=== PATIENT | female | born 1980 | race Caucasian/White ===

== ENCOUNTER → 2022-09-04 | Outpatient (CLI) | payer OTHER, SELFPAY ==
[2022-09-04 17:43] LABS: Absolute Lymphocyte Count 1.59 X10^3/uL (0.83-4.51); Absolute Neutrophil Count 4.9 X10^3/uL (2.0-7.7); Basophil# 0.04 X10^3/uL; Basophil% 0.6 % (0-1); Eosinophil# 0.04 X10^3/uL; Eosinophils% 0.6 % (0-5); Hematocrit 40.4 % (37-47); Hemoglobin 14.4 g/dL (12.0-15.0); Lymphocyte # 1.59 X10^3/ul (0.83-4.51); Lymphocyte % 22.6 % (19-41); Mean Corp Hgb Conc 35.6 g/dL (32-36); Mean Corpuscular Volume 89.8 fL (81-99); Mean Platelet Vol. 11.3 fl (6.2-12.0); Monocyte# 0.44 X10^3/uL; Monocyte% 6.3 % (0-10); NRBC Flagged by Analyzer 0 % (0-5); Neutrophil # 4.89 X10^3/uL (2.7-7.7); Neutrophil % 69.6 % (47-70); Platelet Count 295 K/mm3 (150-450); RBC Distribution Width CV 12.7 % (11.6-14.6); RBC Distribution Width SD 41.9 fl (35.1-43.9)
[2022-09-04 17:47] LABS: ALB/GLOB Ratio 1.2 RATIO (0.9-2.4); AST(SGOT) 17 U/L (15-37); Alanine Aminotransfer ALT/SGPT 20 U/L (13-56); Albumin, Serum 3.9 g/dL (3.2-5.0); Alkaline Phosphatase 66 U/L (45-117); Anion Gap 8 (5-15); BUN 11 mg/dL (7-18); BUN/Creat Ratio 15.9 RATIO (10-20); CRP < 2.90 mg/L (0.0-3.0); Calcium,Total 8.6 mg/dL (8.5-10.1); Chloride 102 mmol/L (98-107); Creatinine, Serum 0.69 mg/dL (0.55-1.02); EST Glomerular Filtration Rate 98 mL/min (>60); Est Glom Filt Rate - Afr Amer 118 mL/min (>60); Globulin 3.3 g/dL (2.2-4.2); Glucose 76 mg/dL (74-106); Potassium 3.4 mmol/L (3.5-5.1); Protein, Total 7.2 g/dL (6.4-8.2); Rheumatoid Factor < 10.0 IU/mL (<15); Sodium Level 135 mmol/L (136-145)
[2022-09-04 17:48] LABS: Erythrocyte Sedimentation Rate 2 mm/hr (0-30)
[2022-09-07 08:56] LABS: Hepatitis B Surface Antibody Non-Reactive; Hepatitis B Surface Antigen Non-Reactive (Nonreactive); Hepatitis C Antibody Non-Reactive (Nonreactive)
[2022-09-08 17:56] LABS: CCP IgG Antibodies 3 units (0-19)
[2022-09-08 18:33] LABS: ANTINUCLEAR ANTIBODIES DIRECT Negative (Negative)
== END | disposition home or self-care (01) ==
LOC: MTLAB 14:38
PROVIDERS: PCP Preventive Medicine Occupational Medicine; Referring Provider Internal Medicine Rheumatology; Visit Provider Internal Medicine Rheumatology
DX: M06.4 Inflammatory polyarthropathy (principal); M79.7 Fibromyalgia; R51.9 Headache, unspecified; K21.9 Gastro-esophageal reflux disease without esophagitis; J30.2 Other seasonal allergic rhinitis
CPT/HCPCS: 36415; 80053; 85025; 85652; 86038; 86140; 86200; 86431; 86706; 86803; 87340

== ENCOUNTER → 2022-12-01 | Outpatient (CLI) | payer OTHER, SELFPAY ==
[2022-12-01 17:59] LABS: Absolute Lymphocyte Count 1.27 X10^3/uL (0.83-4.51); Absolute Neutrophil Count 8.1 X10^3/uL (2.0-7.7); Basophil# 0.04 X10^3/uL; Basophil% 0.4 % (0-1); Eosinophil# 0.03 X10^3/uL; Eosinophils% 0.3 % (0-5); Hematocrit 40.3 % (37-47); Hemoglobin 13.6 g/dL (12.0-15.0); Lymphocyte # 1.27 X10^3/ul (0.83-4.51); Lymphocyte % 12.5 % (19-41); Mean Corp Hgb Conc 33.7 g/dL (32-36); Mean Corpuscular Hgb 31.3 pg (27.0-32.0); Mean Corpuscular Volume 92.9 fL (81-99); Mean Platelet Vol. 10.3 fl (6.2-12.0); Monocyte# 0.73 X10^3/uL; Monocyte% 7.2 % (0-10); NRBC Flagged by Analyzer 0.2 % (0-5); Neutrophil # 8.09 X10^3/uL (2.7-7.7); Neutrophil % 79.3 % (47-70); Platelet Count 277 K/mm3 (150-450); RBC Distribution Width CV 12.9 % (11.6-14.6); RBC Distribution Width SD 44.1 fl (35.1-43.9); Red Blood Count 4.34 M/mm3 (4.2-5.4); White Blood Count 10.2 K/mm3 (4.4-11.0)
[2022-12-01 18:59] LABS: ALB/GLOB Ratio 1.4 RATIO (0.9-2.4); AST(SGOT) 11 U/L (15-37); Alanine Aminotransfer ALT/SGPT 20 U/L (13-56); Albumin, Serum 3.9 g/dL (3.2-5.0); Alkaline Phosphatase 50 U/L (45-117); Anion Gap 6 (5-15); BUN 9 mg/dL (7-18); BUN/Creat Ratio 10.1 RATIO (10-20); Calcium,Total 8.6 mg/dL (8.5-10.1); Chloride 102 mmol/L (98-107); Creatinine, Serum 0.89 mg/dL (0.55-1.02); EST Glomerular Filtration Rate 73 mL/min (>60); Est Glom Filt Rate - Afr Amer 88 mL/min (>60); Globulin 2.8 g/dL (2.2-4.2); Glucose 109 mg/dL (74-106); Potassium 4.5 mmol/L (3.5-5.1); Protein, Total 6.7 g/dL (6.4-8.2); Sodium Level 137 mmol/L (136-145)
== END | disposition home or self-care (01) ==
LOC: MTLAB 16:40
PROVIDERS: PCP Preventive Medicine Occupational Medicine; Referring Provider Internal Medicine Rheumatology; Visit Provider Internal Medicine Rheumatology
DX: M06.4 Inflammatory polyarthropathy (principal); M79.7 Fibromyalgia; R51.9 Headache, unspecified; K21.9 Gastro-esophageal reflux disease without esophagitis; J30.2 Other seasonal allergic rhinitis
CPT/HCPCS: 36415; 80053; 85025

== ENCOUNTER → 2023-01-27 | Outpatient (CLI) | payer OTHER, SELFPAY ==
[2023-01-27 17:54] LABS: Absolute Lymphocyte Count 1.67 X10^3/uL (0.83-4.51); Basophil# 0.04 X10^3/uL; Basophil% 0.8 % (0-1); Eosinophil# 0.04 X10^3/uL; Eosinophils% 0.8 % (0-5); Hematocrit 37.9 % (37-47); Hemoglobin 13.1 g/dL (12.0-15.0); Lymphocyte # 1.67 X10^3/ul (0.83-4.51); Lymphocyte % 31.7 % (19-41); Mean Corp Hgb Conc 34.6 g/dL (32-36); Mean Corpuscular Volume 92.7 fL (81-99); Mean Platelet Vol. 11.4 fl (6.2-12.0); Monocyte% 9.5 % (0-10); NRBC Flagged by Analyzer 0 % (0-5); Neutrophil # 3.02 X10^3/uL (2.7-7.7); Neutrophil % 57.2 % (47-70); Platelet Count 242 K/mm3 (150-450); RBC Distribution Width CV 12.9 % (11.6-14.6); RBC Distribution Width SD 43.8 fl (35.1-43.9); Red Blood Count 4.09 M/mm3 (4.2-5.4); White Blood Count 5.3 K/mm3 (4.4-11.0)
[2023-01-27 18:40] LABS: ALB/GLOB Ratio 1.3 RATIO (0.9-2.4); AST(SGOT) 22 U/L (15-37); Alanine Aminotransfer ALT/SGPT 30 U/L (13-56); Albumin, Serum 3.9 g/dL (3.2-5.0); Alkaline Phosphatase 62 U/L (45-117); Anion Gap 8 (5-15); BUN 9 mg/dL (7-18); Calcium,Total 8.6 mg/dL (8.5-10.1); Chloride 103 mmol/L (98-107); Creatinine, Serum 0.75 mg/dL (0.55-1.02); EST Glomerular Filtration Rate 89 mL/min (>60); Est Glom Filt Rate - Afr Amer 108 mL/min (>60); Globulin 2.9 g/dL (2.2-4.2); Glucose 98 mg/dL (74-106); Potassium 3.6 mmol/L (3.5-5.1); Protein, Total 6.8 g/dL (6.4-8.2); Sodium Level 137 mmol/L (136-145)
== END | disposition home or self-care (01) ==
PROVIDERS: PCP Preventive Medicine Occupational Medicine; Referring Provider Internal Medicine Rheumatology; Visit Provider Internal Medicine Rheumatology
DX: M06.4 Inflammatory polyarthropathy (principal); Z79.899 Other long term (current) drug therapy
CPT/HCPCS: 36415; 80053; 85025

== ENCOUNTER → 2023-04-16 | Outpatient (CLI) | payer OTHER, SELFPAY ==
[2023-04-16 18:04] LABS: Absolute Neutrophil Count 8.1 X10^3/uL (2.0-7.7); Basophil# 0.03 X10^3/uL; Basophil% 0.3 % (0-1); Hematocrit 41.6 % (37-47); Hemoglobin 14.1 g/dL (12.0-15.0); Lymphocyte % 9.6 % (19-41); Mean Corp Hgb Conc 33.9 g/dL (32-36); Mean Corpuscular Volume 94.3 fL (81-99); Mean Platelet Vol. 10.4 fl (6.2-12.0); Monocyte# 0.34 X10^3/uL; Monocyte% 3.6 % (0-10); NRBC Flagged by Analyzer 0 % (0-5); Neutrophil # 8.05 X10^3/uL (2.7-7.7); Neutrophil % 86.3 % (47-70); Platelet Count 317 K/mm3 (150-450); RBC Distribution Width SD 44.7 fl (35.1-43.9); Red Blood Count 4.41 M/mm3 (4.2-5.4); White Blood Count 9.3 K/mm3 (4.4-11.0)
[2023-04-16 18:35] LABS: ALB/GLOB Ratio 1.1 RATIO (0.9-2.4); AST(SGOT) 25 U/L (15-37); Alanine Aminotransfer ALT/SGPT 20 U/L (13-56); Albumin, Serum 3.9 g/dL (3.2-5.0); Alkaline Phosphatase 65 U/L (45-117); Anion Gap 6 (5-15); BUN 15 mg/dL (7-18); BUN/Creat Ratio 20.9 RATIO (10-20); Calcium,Total 9.2 mg/dL (8.5-10.1); Chloride 105 mmol/L (98-107); Creatinine, Serum 0.72 mg/dL (0.55-1.02); EST Glomerular Filtration Rate 94 mL/min (>60); Est Glom Filt Rate - Afr Amer 113 mL/min (>60); Globulin 3.4 g/dL (2.2-4.2); Glucose 96 mg/dL (74-106); Protein, Total 7.3 g/dL (6.4-8.2); Sodium Level 136 mmol/L (136-145)
== END | disposition home or self-care (01) ==
LOC: MTLAB 16:31
PROVIDERS: PCP Preventive Medicine Occupational Medicine; Referring Provider Internal Medicine Rheumatology; Visit Provider Internal Medicine Rheumatology
DX: M06.4 Inflammatory polyarthropathy (principal); Z79.899 Other long term (current) drug therapy
CPT/HCPCS: 36415; 80053; 85025

== ENCOUNTER → 2023-11-26 | Outpatient (CLI) | payer OTHER, SELFPAY ==
--- OUTSIDE RECORDS SUMMARY | 2023-11-26 16:52 | XMS RPT_ITS | CCD ---
Author Name Unknown Address [address] [place] [address] Organization [facility] Care Team Providers Care Public Relations Senior Associate Name Role Phone Karolyn Zee Primary Care Provider [phone] KAROLYN ZEE DO Primary Care Physician Marge LEE, Jeanie Unavailable Unavailable LEVI PAEZ, DR LASSITER Attending KAROLYN Broussard DO Primary Care Unavailable LEVI PAEZ, DR LASSITER Attending KAROLYN Broussard DO Primary Care Unavailable Allergies Allergy Classification Reported Allergen(s) Allergy Type Date of Onset Reaction(s) Facility (7 sources) Gentamicin; Translations: [gentamicin] Drug Allergy 0 Swelling, Rash, Facial swelling (finding) [place], [place] (6 sources) Sulfonamides (Antibiotic) Propensity to adverse reactions to drug 0 Swelling [place], [place] (1 source) Sulfonamides (Antibiotic); Translations: [sulfa drugs] Drug allergy Rash [facility] Work Phone: Medications Current Medications Medication Drug Class(es) Dates Sig (Normalized) Sig (Original) acetaminophen 500 mg oral tablet (6 sources) Start: 08-29-2020 acetaminophen 500 mg oral tablet Dose : 1,000 mg = 2 tab(s), Oral, TID, PRN pain or fever, 0 Refill(s) Start Date: 08/29/20 Status: Ordered Completed/Discontinued Medications Medication Drug Class(es) Dates Sig (Normalized) Sig (Original) celecoxib 100 mg oral capsule (2 sources) Nonsteroidal Anti-inflammatory Drug Start: 04-10-2020 End: 05-20-2020 take 1 capsule by mouth twice daily celecoxib (CELEBREX) 100 MG capsule TAKE 1 CAPSULE BY MOUTH TWICE A DAY 60 capsule 0 04/10/2020 05/20/2020 Discontinued (LIST CLEANUP) Problems Problem Classification Problem Date Documented Date Episodic/Chronic Anxiety disorders (1 source) 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 Disorders of teeth and jaw (1 source) Temporomandibular kabph-kfiv-cdmqyesjopi syndrome 07-26-2020 Episodic Esophageal disorders (1 source) Gastroesophageal reflux disease without esophagitis 07-26-2020 Chronic Malaise and fatigue (1 source) Fatigue 04-10-2022 Episodic Other connective tissue disease (1 source) 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 Other connective tissue disease (1 source) Spasm 02-14-2021 Episodic Other non-traumatic joint disorders (1 source) Multiple joint pain 04-10-2022 Episodic Other upper respiratory disease (1 source) Seasonal allergy 02-16-2020 Chronic Residual codes; unclassified (1 source) Insomnia 02-10-2021 Episodic Spondylosis; intervertebral disc disorders; other back problems (10 sources) Radiculopathy due to lumbar intervertebral disc disorder; Translations: [Lumbar spondylosis] Onset: 03-24-2020 03-24-2020 Chronic Unclassified (1 source) Mitotane (substance) 02-16-2020 Results Test Name Value Interpretation Reference Range Facil ity Vital Signs Date Time Vital Sign Value Performing Clinician Faci lity 10-14-2020 09:20-0500 Body Temperature 97.81 [degF] Reuben [facility], [place] 10-14-2020 09:20-0500 BP Diastolic 81 mm[Hg] [facility] , [place] 10-14-2020 09:20-0500 BP Systolic 125 mm[Hg] [facility] [place] 10-14-2020 09:20-0500 Pulse (Heart Rate) 64 /min [facility], [place] 10-14-2020 09:20-0500 Pulse Oximetry 100 % [facility] [place] 10-14-2020 09:20-0500 Respiratory Rate 16 /min [facility] [place] 09-16-2020 09:21-0500 BP Diastolic 89 mm[Hg] [facility] [place] 09-16-2020 09:21-0500 BP Systolic 115 mm[Hg] [facility] [place] 09-16-2020 09:21-0500 Pulse (Heart Rate) 80 /min [facility] [place] 09-16-2020 09:21-0500 Pulse Oximetry 100 % [facility] [place] [facility] [place] 09-16-2020 09:21-0500 Respiratory Rate 16 /min [facility] [place] 09-16-2020 08:28-0500 Body Temperature 98.01 [degF] [facility] [place] 09-02-2020 10:15-0400 Body Temperature 98.01 [degF] [facility] [place] 09-02-2020 10:15-0400 BP Diastolic 89 mm[Hg] [facility] [place] 09-02-2020 10:15-0400 BP Systolic 119 mm[Hg] [facility] [place] 09-02-2020 10:15-0400 Pulse (Heart Rate) 62 /min [facility] [place] 09-02-2020 10:15-0400 Pulse Oximetry 99 % [facility] [place] 09-02-2020 10:15-0400 Respiratory Rate 16 /min [facility] [place] 08-05-2020 10:43-0400 BP Diastolic 82 mm[Hg] [facility] [place] 08-05-2020 10:43-0400 BP Systolic 133 mm[Hg] [facility]uben [facility] [place] 08-05-2020 10:43-0400 Pulse (Heart Rate) 62 /min [facility] [place] 08-05-2020 10:43-0400 Pulse Oximetry 100 % [facility] [place] 08-05-2020 10:43-0400 Respiratory Rate 16 /min [facility] [place] 08-05-2020 10:10-0400 BMI (Body Mass Index) 21.8 kg/m2 Reuben [facility] [place] 08-05-2020 10:10-0400 Body weight 59.42 kg Re[facility] [place] 08-05-2020 10:10-0400 Height 165.1 cm [facility] [place] 08-05-2020 10:07-0400 Body Temperature 98.91 [degF] [facility] [place] 05-20-2020 10:14-0400 BP Diastolic 91 mm[Hg] [facility] [place] [facility] [place] 05-20-2020 10:14-0400 BP Systolic 137 mm[Hg] [facility] [place] 05-20-2020 10:14-0400 Pulse (Heart Rate) 62 /min [facility] [place] 05-20-2020 10:14-0400 Pulse Oximetry 100 % [facility] [place] 05-20-2020 10:14-0400 Respiratory Rate 16 /min [facility] 05-20-2020 09:37-0400 Body Temperature 97.5 [degF] [facility] 05-20-2020 09:37-0400 BMI (Body Mass Index) 21.63 kg/m2 Reuben Michaels [facility] [place], [place] 05-20-2020 09:37-0400 Body weight 58.97 kg Reuben [facility] [place] [facility] [place] 05-20-2020 09:37-0400 Height 165.1 cm Re[facility] [place] [facility] [place] 03-25-2020 08:36-0400 Body Temperature 98.1 [degF] [facility] [place] 03-25-2020 08:36-0400 BP Diastolic 81 mm[Hg] [facility] [place] [facility] [place] 03-25-2020 08:36-0400 BP Systolic 112 mm[Hg] Re[facility] [place] 03-25-2020 08:36-0400 Pulse (Heart Rate) 60 /min [facility] [place] 03-25-2020 08:36-0400 Pulse Oximetry 100 % Re[facility] [place] 03-25-2020 08:36-0400 Respiratory Rate 16 /min [place] 03-25-2020 06:57-0400 BMI (Body Mass Index) 21.63 kg/m2 Reuben Michaels [place], [place] 03-25-2020 06:57-0400 Body weight 58.97 kg Reuben Varghese [place], [place] 03-25-2020 06:57-0400 Height 165.1 cm Reuben Varghese [place] Encounters Encounter Date Encounter Type Care Provider Facility Start: 08-31-2023 End: 09-01-[address] SRAVANI SIMS MD Facility:B Start: 06-29-2023 End: 06-30-[address] SRAVANI SIMS MD Facility:[facility] Start: 04-14-2022 End: 04-14-2022 Patient encounter procedure KAROLYN SOLORIOLondon [facility] Start: 10-14-2020 End: 10-14-2020 Subsequent hospital visit by physician Reuben Varghese Work Phone: [facility] General Surgery Procedures Date Procedure Procedure Detail Performing Clinician Anes nose & accessor y sinuses radical surgery KAROLYN ZEE DO Arthroscopy of knee KAROLYN MEDLEY DO Plan of Treatment Date Care Activity Detail Author Start: 10-18-2020 End: 10-18-2020 Office Visit 10/18/2020 Office Visit Pain Management Reuben Varghese MD [address] [place], [place] [id number] Pain Medicine Start: 09-03-2020 End: 09-03-2020 Office Visit 09/03/2020 Office Visit Pain Management Reuben Varghese MD [address] [place], [place] [id number] Pain Medicine Start: 07-09-2020 Influenza vaccination [place], [place] Start: 2018 Lipid panel Lipid screen [place], [place] Start: 1999 Screening for malign ant neoplasm of cervix Cervical cancer screen [place], [place] Start: 1997 DTaP/Tdap/Td vaccine (1 - Tdap) DTaP/Tdap/Td vaccine (1 - Tdap) [place], [place] Start: 1993 [facility] [place] [place] Payers Date Payer Category Payer Unknown [id number] 2019 Unknown [employer] xxxxxxxxxxxxx 2019-Present [phone] [address] [place] [phone] xxxxxxxxxxxxx [id number] 2019 Unknown [employer] [id number] 2019-Present [phone] [place] [id number] 2019 Unknown [employer] [id number] 2019-Present [phone] [place] [phone] [id number] 1980 Unknown [id number] 1980 Unknown [id number] Social History Date Type Detail Facility Start: 02-16-2020 End: 03-25-2020 Tobacco smoking status NHIS Never smoker [place], [place] Start: 03-25-2020 End: 09-02-2020 Alcohol intake Current drinker of alcohol (finding) [place], [place] Start: 01-04-2020 Alcohol Comment rare use only [place], [place] Sex Assigned At Not on file [place] Start: 05-20-2020 End: 09-02-2020 Tobacco use and exposure Never used BeetailerTANI Exposure to SARS-CoV -2 (event) Not sure BeetailerTANI Sex Assigned At Female [facility] Evaluation + Plan note Radiology Note Date & Type Note Facility Evaluation + Plan note Future Appointments Appointment Date:10/05/2022 09:00:00 AM Scheduled Provider:KAROLYN ZEE DO Location:[facility] Appointment Type: OV Diagnostic Tests PendingAntinuclear Antibody Screen, Serum 04/14/22Rheumatoid Factor 04/14/22 Future Scheduled TestsMA Mammo Screening Bilateral w/ Candido 04/10/22 [facility] Hospital course Narrative Note Date & Type Note Facility Hospital course Narrative No data available for this section [facility] Hospital Discharge instructions Note Date & Type Note Facility Hospital Discharge instructions No data available for this section [facility] Progress note Note Date & Type Note Facility Progress note No data available for this section [facility] Summary Purpose Family History No Family History Records FoundNo Family History Records FoundNo Family History Records Found Advance Directives No Advanced Directives Records FoundDocuments on File Type Date Recorded Patient Brim Flexer Expl anation Advance Directives and Living Will Power of Packaging Mechanic Latest Code Status on File Code Status Date Activated Date Inactivated Comments Full Code 03/25/2020 6:56 AM Latest Code Status on File Code Status Date Activated Date Inactivated Comments Full Code 05/20/2020 9:30 AM Full Code 03/25/2020 6:56 AM 03/25/2020 10:48 AM Documents on File Type Date Recorded Patient Brim Flexer Expl anation ACP-Advance Directive ACP-Power of Packaging Mechanic Latest Code Status on File Code Status Date Activated Date Inactivated Comments Full Code 08/05/2020 10:03 AM Full Code 05/20/2020 9:30 AM 05/20/2020 12:35 PM Latest Code Status on File Code Status Date Activated Date Inactivated Comments Full Code 09/16/2020 8:31 AM Full Code 09/02/2020 8:41 AM 09/02/2020 12:33 PM Full Code 08/05/2020 10:03 AM 08/05/2020 1:00 PM Latest Code Status on File Code Status Date Activated Date Inactivated Comments Full Code 10/14/2020 7:54 AM Full Code 09/16/2020 8:31 AM 09/16/2020 12:13 PM Latest Code Status on File Code Status Date Activated Date Inactivated Comments Full Code 09/02/2020 8:41 AM Discharge Instructions * Instructions* Reuben Varghese MD - 03/25/2020 - Resume normal activity as tolerated - Resume normal diet as tolerated - If injection site is sore, can ice for pain relief - No tubs, baths, pools for 24 hours (showers are okay). - If you take a blood thinner, resume taking this per Dr Varghese's instructions (usually resume 24 hrs after your procedure) - Call Dr Varghese's office (or go to ER after hours or on weekends) if having significantly worsened back or leg pain, significant leg weakness, loss of bowel/bladder control, inability to urinate, fever, or severe positional headache (headache that is significant while upright, but immediately improved with lying flat) - Dr Varghese's office will call you the next business day to schedule follow-up appointment documented in this encounter* Instructions* Reuben Varghese MD - 05/20/2020 - Resume normal activity as tolerated - Resume normal diet as tolerated - If injection site is sore, can ice for pain relief - No tubs, baths, pools for 24 hours (showers are okay). - If you take a blood thinner, resume taking this per Dr Varghese's instructions (usually resume 24 hrs after your procedure) - Call Dr Varghese's office (or go to ER after hours or on weekends) if having significantly worsened back or leg pain, significant leg weakness, loss of bowel/bladder control, inability to urinate, fever, or severe positional headache (headache that is significant while upright, but immediately improved with lying flat) - Dr Varghese's office will call you this week to schedule follow-up appointment documented in this encounter* Instructions* Reuben Varghese MD - 08/05/2020 - Resume normal activity as tolerated.... and pay close attention to your usual low back pain over the next few hours (and fill out pain diary provided to you today) - Resume normal diet as tolerated - If injection site is sore, can ice for pain relief - No tubs, baths, pools for 24 hours (showers are okay). - If you take a blood thinner, resume taking this per Dr Varghese's instructions (usually resume 24 hrs after your procedure) - Call Dr Varghese's office (or go to ER after hours or on weekends) if having significantly worsened back or leg pain, significant leg weakness, loss of bowel/bladder control, inability to urinate, fever, or severe positional headache (headache that is significant while upright, but immediately improved with lying flat) - Dr Varghese's office will call you this week to schedule follow-up appointment, if you do not already have one documented in this encounter* Instructions* Reuben Varghese MD - 09/16/2020 - Resume normal activity as tolerated... and pay close attention to your usual low back pain over the next few hours (and fill out pain diary provided to you today) - Resume normal diet as tolerated - If injection site is sore, can ice for pain relief - No tubs, baths, pools for 24 hours (showers are okay). - If you take a blood thinner, resume taking this per Dr Varghese's instructions (usually resume 24 hrs after your procedure) - Call Dr Varghese's office (or go to ER after hours or on weekends) if having significantly worsened back or leg pain, significant leg weakness, loss of bowel/bladder control, inability to urinate, fever, or severe positional headache (headache that is significant while upright, but immediately improved with lying flat) - Dr Varghese's office will call you this week to gauge how much relief you obtained, and schedule the next step documented in this encounter* Instructions* Reuben Varghese MD - 10/14/2020 - Resume normal activity as tolerated - Resume normal diet as tolerated - If injection site is sore, can ice for pain relief - No tubs, baths, pools for 24 hours (showers are okay). - If you take a blood thinner, resume taking this per Dr Varghese's instructions (usually resume 24 hrs after your procedure) - Call Dr Varghese's office (or go to ER after hours or on weekends) if having significantly worsened back or leg pain, significant leg weakness, loss of bowel/bladder control, inability to urinate, fever, or severe positional headache (headache that is significant while upright, but immediately improved with lying flat) - Dr Varghese's office will call you this week to schedule follow-up appointment, if you do not already have one documented in this encounter* Instructions* Reuben Varghese MD - 09/02/2020 - Resume normal activity as tolerated... and pay close attention to your usual low back pain over the next few hours (and fill out pain diary provided to you today) - Resume normal diet as tolerated - If injection site is sore, can ice for pain relief - No tubs, baths, pools for 24 hours (showers are okay). - If you take a blood thinner, resume taking this per Dr Varghese's instructions (usually resume 24 hrs after your procedure) - Call Dr Varghese's office (or go to ER after hours or on weekends) if having significantly worsened back or leg pain, significant leg weakness, loss of bowel/bladder control, inability to urinate, fever, or severe positional headache (headache that is significant while upright, but immediately improved with lying flat) - Dr Varghese's office will call you this week to schedule follow-up appointment, if you do not already have one documented in this encounter History of Present Illness * Jessica Diego RN - 09/16/2020 9:23 AM EST Baindaid to right lower back dry and intact documented in this encounter* Jessica Benton RN - 09/02/2020 10:24 AM EDT Instructions given with verbalized understanding Pt had no sedation and chose to walk out Will do follow up to decide plan of care documented in this encounter Procedure Findings Note Operative Note Patient: Sushant Stapleton Date of : 1980 PROCEDURE: LEFT L5 Transforaminal Epidural Steroid Injection under Fluoroscopic Guidance PERFORMED BY: Reuben Varghese MD PRE-OPERATIVE DIAGNOSIS: Lumbar Radiculopathy in a LEFT L5 distribution POST-OPERATIVE DIAGNOSIS: Same ANESTHESIA: Local DESCRIPTION: A history and physical examination were performed and informed consent obtained. A ?time out? with 2 active identifiers of the patient, the procedure, and the site was performed. A sterile prep with Chloraprep and drape of the lumbar area was then performed. Using an ipsilateral oblique fluoroscopic view, the LEFT L5-S1 neuroforamen was brought into view. Approximately 4 cc of 1% lidocaine was then used to provide local anesthesia in the overlying skin and subcutaneous tissues. Next, using a subpedicular approach, a 5 inch, 22g Quinke needle was placed under fluoroscopy and advanced toward the appropriate neuroforamen as identified in both the AP and oblique views (more content not included)... Note Operative Note Patient: Sushant Stapleton Date of : 1980 Date of Procedure: 05/20/20 PROCEDURE: Lumbar Epidural Steroid Injection under Fluoroscopic Guidance PERFORMED BY: Reuben Varghese MD PRE-OPERATIVE DIAGNOSIS: Lumbar Radiculopathy POST-OPERATIVE DIAGNOSIS: Same ANESTHESIA: Local DESCRIPTION: A history and physical examination were performed and informed consent obtained. A ?time out? with 2 active identifiers of the patient, the procedure, and the site was performed. A sterile prep with Chloraprep and drape of the lumbar area was then performed. Using an AP fluoroscopic view, the L5-S1 interlaminar space was brought into view. Approximately 4 cc of 1% lidocaine was then used to provide local anesthesia in the overlying skin and subcutaneous tissues. Next, using a left paramedian, loss of resistance to saline approach, a 3.5 inch, 20g Touhy needle was placed under fluoroscopy and advanced toward the epidural space as identified in both the AP and lateral views. The e (more content not included)... Note Operative Note Patient: Sushant Stapleton Date of : 1980 Date of Procedure: 08/05/20 PROCEDURE: LEFT L3, L4, and L5 Medial Branch Nerve Blocks under Fluoroscopic Guidance PERFORMED BY: Reuben Varghese MD PRE-OPERATIVE DIAGNOSIS: Lumbar Spondylosis without Radiculopathy or Myelopathy POST-OPERATIVE DIAGNOSIS: Same ANESTHESIA: Local DESCRIPTION: History and physical examination were performed and informed consent obtained. A ?time out? with 2 active identifiers of the patient, the procedure, and the site was performed. The patient was positioned prone on the fluoroscopy table. A sterile prep and drape of the area was performed and approximately 8 cc total of 1% lidocaine was used to provide local anesthesia. Fluoroscopy was used to identify the LEFT facet joints between L4-L5 and L5-S1. Using the single needle technique, a 22-gauge, 3.5 inch spinal needle was placed under fluoroscopic guidance in the oblique view, and directed to the junction of the superior articular proce (more content not included)... Note Operative Note Patient: Sushant Stapleton Date of : 1980 Date of Procedure: 09/02/20 PROCEDURE: Bilateral L3, L4, and L5 Medial Branch Nerve Blocks under Fluoroscopic Guidance PERFORMED BY: Reuben Varghese MD PRE-OPERATIVE DIAGNOSIS: Lumbar Spondylosis without Radiculopathy or Myelopathy POST-OPERATIVE DIAGNOSIS: Same ANESTHESIA: Local DESCRIPTION: History and physical examination were performed and informed consent obtained. A ?time out? with 2 active identifiers of the patient, the procedure, and the site was performed. The patient was positioned prone on the fluoroscopy table. A sterile prep and drape of the area was performed and approximately 12 cc total of 1% lidocaine was used to provide local anesthesia. Fluoroscopy was used to identify the RIGHT facet joints between L4-L5 and L5-S1. Using the single needle technique, a 22-gauge, 3.5 inch spinal needle was placed under fluoroscopic guidance in the oblique view, and directed to the junction of the superior articul (more content not included)... Note Operative Note Patient: Sushant Stapleton Date of : 1980 Date of Procedure: 09/16/20 PROCEDURE: RIGHT L3, L4, and L5 Medial Branch Nerve Blocks under Fluoroscopic Guidance PERFORMED BY: Reuben Varghese MD PRE-OPERATIVE DIAGNOSIS: Lumbar Spondylosis without Radiculopathy or Myelopathy POST-OPERATIVE DIAGNOSIS: Same ANESTHESIA: Local DESCRIPTION: History and physical examination were performed and informed consent obtained. A ?time out? with 2 active identifiers of the patient, the procedure, and the site was performed. The patient was positioned prone on the fluoroscopy table. A sterile prep and drape of the area was performed and approximately 7 cc total of 1% lidocaine was used to provide local anesthesia. Fluoroscopy was used to identify the RIGHT facet joints between L4-L5 and L5-S1. Using the single needle technique, a 22-gauge, 3.5 inch spinal needle was placed under fluoroscopic guidance in the oblique view, and directed to the junction of the superior articular pro (more content not included)... Note Operative Note Patient: Sushant Stapleton Date of : 1980 Date of Procedure: 10/14/20 PROCEDURE: Radiofrequency Ablation of the Bilateral L3, L4, and L5 Medial Branch Nerves under Fluoroscopic Guidance PERFORMED BY: Reuben Varghese MD PRE-OPERATIVE DIAGNOSIS: Lumbar Spondylosis POST-OPERATIVE DIAGNOSIS: Same ANESTHESIA: Local DESCRIPTION: History and physical examination were performed and informed consent obtained. A ?time out? with 2 active identifiers of the patient, the procedure, and the site was performed. The patient was positioned prone on the fluoroscopy table. A sterile prep with Chloraprep and drape of the area was performed and approximately 15 cc total of 1% lidocaine was used to provide local anesthesia. Fluoroscopy was used to identify the RIGHT facet joints between L4-L5 and L5-S1. Using the single needle technique, a 20 g, 10 cm RF cannula was then placed under fluoroscopic guidance in the oblique view, and directed to the junction of the superior articula (more content not included)... Additional Source Comments INFORMATION SOURCE (unrecogn ized section and content) DATE CREATED AUTHOR AUTHOR'S ORGANIZ ATION 10/24/2020 [facility] DATE CREATED AUTHOR AUTHOR'S ORGANIZ ATION 09/05/2023 [facility]) Care Team (unrecognized sect ion and content) Personnel Name: KAROLYN ZEE DO Address: [address] [place] [id number] Name: Taj Bird PT FOR RECORDS PERTAINING TO PATIENTS WHO ARE OR HAVE BEEN ENROLLED IN A CHEMICAL DEPENDENCY/SUBSTANCEABUSE PROGRAM, SOME INFORMATION MAY BE OMITTED. This clinical summary was aggregated from multiple sources. Caution should be exercised in using it in the provision of clinical care. This summary normalizes information from multiple sources, and as a consequence, information in this document may materially change the coding, format and clinical context of patient data. In addition, data may be omitted in some cases. CLINICAL DECISIONS SHOULD BE BASED ON THE PRIMARY CLINICAL RECORDS. [email or web address] provides no warranty or guarantee of the accuracy or completeness of information in this document.
[2023-12-01 08:11] LABS: QNTFERON TB Mitogen Value > 10.00 IU/mL (.); QNTFERON TB Nil Value 0 IU/mL (.); QNTFERON TB1+ Ag Value 0 IU/mL (.); QNTFERON TB2+ Ag Value 0 IU/mL (.); QNTIFERON TB Positive Criteria Negative (Negative)
== END | disposition home or self-care (01) ==
LOC: MTLAB 16:49
PROVIDERS: PCP Preventive Medicine Occupational Medicine; Referring Provider Internal Medicine Rheumatology; Visit Provider Internal Medicine Rheumatology
DX: M06.09 Rheumatoid arthritis without rheumatoid factor, multiple sites (principal); M79.7 Fibromyalgia; Z79.899 Other long term (current) drug therapy
CPT/HCPCS: 36415; 86480

== ENCOUNTER → 2024-03-08 | Outpatient (CLI) | payer OTHER, SELFPAY ==
[2024-03-08 17:46] LABS: Absolute Lymphocyte Count 0.83 X10^3/uL (0.83-4.51); Absolute Neutrophil Count 6.8 X10^3/uL (2.0-7.7); Basophil# 0.03 X10^3/uL; Basophil% 0.4 % (0-1); Eosinophil# 0.01 X10^3/uL; Eosinophils% 0.1 % (0-5); Hemoglobin 12.7 g/dL (12.0-15.0); Lymphocyte # 0.83 X10^3/ul (0.83-4.51); Lymphocyte % 10.3 % (19-41); Mean Corp Hgb Conc 34.3 g/dL (32-36); Mean Corpuscular Hgb 32.5 pg (27.0-32.0); Mean Corpuscular Volume 94.6 fL (81-99); Mean Platelet Vol. 10.7 fl (6.2-12.0); Monocyte# 0.31 X10^3/uL; Monocyte% 3.9 % (0-10); NRBC Flagged by Analyzer 0 % (0-5); Neutrophil # 6.83 X10^3/uL (2.7-7.7); Neutrophil % 85.2 % (47-70); Platelet Count 245 K/mm3 (150-450); RBC Distribution Width CV 13.2 % (11.6-14.6); RBC Distribution Width SD 44.9 fl (35.1-43.9); Red Blood Count 3.91 M/mm3 (4.2-5.4)
[2024-03-08 18:27] LABS: ALB/GLOB Ratio 1.4 RATIO (0.9-2.4); AST(SGOT) 16 U/L (15-37); Alanine Aminotransfer ALT/SGPT 19 U/L (13-56); Albumin, Serum 3.9 g/dL (3.2-5.0); Alkaline Phosphatase 56 U/L (45-117); Anion Gap 6 (5-15); BUN 8 mg/dL (7-18); BUN/Creat Ratio 11.4 RATIO (10-20); Chloride 104 mmol/L (98-107); EST Glomerular Filtration Rate 96 mL/min (>60); Est Glom Filt Rate - Afr Amer 116 mL/min (>60); Globulin 2.7 g/dL (2.2-4.2); Glucose 114 mg/dL (74-106); Protein, Total 6.6 g/dL (6.4-8.2); Sodium Level 137 mmol/L (136-145)
== END | disposition home or self-care (01) ==
LOC: MTLAB 15:04
PROVIDERS: PCP Preventive Medicine Occupational Medicine; Referring Provider Internal Medicine Rheumatology; Visit Provider Internal Medicine Rheumatology
DX: M06.09 Rheumatoid arthritis without rheumatoid factor, multiple sites (principal); Z79.899 Other long term (current) drug therapy
CPT/HCPCS: 36415; 80053; 85025